=== PATIENT | male | born 1945 | race Caucasian/White ===

== ENCOUNTER 2017-06-27 12:15 | Emergency (ER) | payer SELFPAY ==
[~2017-06-27] VITALS: Ht 167.6 cm; Wt 72.0 kg
[2017-06-27 12:21] VITALS: BP 121/67
== END 2017-06-27 19:06 | disposition left against medical advice (07) ==
LOC: ER 12:23
DX: M25.561 Pain in right knee (principal); Z53.21 Procedure and treatment not carried out due to patient leaving prior to being seen by health care provider